=== PATIENT | male | born 1945 | race Asian ===

== ENCOUNTER 2023-09-01 10:25 | Emergency (ER) | payer OTHER ==
[~2023-09-01] VITALS: Ht 162.6 cm; Wt 54.4 kg
[2023-09-01 11:20] VITALS: BP 101/65; PULSE 102; RESP 20; TEMP 99.7
[2023-09-01] MEDS ORDERED: IBUP-1842 PO (11:53)
[2023-09-01] MEDS ORDERED: ACET-10509 PO (11:53)
[2023-09-01] MEDS ORDERED: NIRM1TAB9 PO (11:53)
[2023-09-01 12:13] LABS: FLU A ANTIGEN negative (NEGATIVE); FLU B ANTIGEN negative (NEGATIVE)
[2023-09-01] MEDS: IBUPROFEN 400 MG TAB PO ONE (12:37)
[2023-09-01] MEDS: ACETAMINOPHEN EXTRA STRENGTH 500 MG TAB PO ONE (12:39)
== END 2023-09-01 12:54 | disposition home or self-care (01) ==
LOC: MED 10:25
DX: U07.1 COVID-19 (principal); Z79.899 Other long term (current) drug therapy
CPT/HCPCS: 99283